=== PATIENT | male | born 1955 ===

== ENCOUNTER 2016-10-31 12:41 | Outpatient (CLI) | payer BC ==
--- NOTE | 2016-10-31 13:51 | Ultrasound Report ---
TESTICULAR ULTRASOUND WITH DUPLEX DOPPLER ULTRASOUND: 10/31/16 CLINICAL: Left groin pain. FINDINGS: High resolution ultrasound demonstrated normal testes with normal echogenicity, size and contours. No testicular mass. The right testis measured 4.2 x 2.5 x 3.4cm. The left testis measured 3.9 x 2.3 x 3.0cm. Normal epididymes. Small bilateral hydroceles. Both testes and epididymes demonstrated normal blood flow by color and duplex Doppler with normal spectral waveforms. Small left varicocele. No inguinal hernia identified. IMPRESSION: Small left varicocele and small bilateral hydroceles. No torsion and no epididymoorchitis.
== END 2016-10-31 12:42 | disposition home or self-care (01) ==
LOC: SPVWC 12:41
PROVIDERS: ATTEND Internal Medicine
DX: N43.3 Hydrocele, unspecified (principal); I86.1 Scrotal varices
CPT/HCPCS: 93975